=== PATIENT | female | born 1980 | race African-American/Black ===

== ENCOUNTER 2018-03-01 01:59 | Emergency (ER) | payer MEDICAID ==
[~2018-03-01] VITALS: Ht 167.6 cm; Wt 66.0 kg
[2018-03-01] MEDS ORDERED: KETOROLAC 60MG/2ML VIAL IM ONE (06:45)
[2018-03-01 07:26] VITALS: BP 132/74
== END 2018-03-01 07:30 | disposition home or self-care (01) ==
LOC: ER 04:35
DX: K02.9 Dental caries, unspecified (principal)
CPT/HCPCS: 96372; 99283; J1885

== ENCOUNTER 2019-08-04 10:49 | Emergency (ER) | payer MEDICAID ==
[~2019-08-04] VITALS: Ht 167.6 cm; Wt 78.0 kg
[2019-08-04] MEDS ORDERED: ACETAMINOPHEN 325MG TABLET PO ONE (12:15)
[2019-08-04 13:58] VITALS: BP 130/90
== END 2019-08-04 13:58 | disposition home or self-care (01) ==
LOC: ER 10:49
DX: S83.8X1A Sprain of other specified parts of right knee, initial encounter (principal); S93.501A Unspecified sprain of right great toe, initial encounter; I10 Essential (primary) hypertension; W10.8XXA Fall (on) (from) other stairs and steps, initial encounter; Y93.89 Activity, other specified; Y92.018 Other place in single-family (private) house as the place of occurrence of the external cause
CPT/HCPCS: 73560; 73620; 99283

== ENCOUNTER 2019-12-03 11:39 | Emergency (ER) | payer MEDICAID ==
[~2019-12-03] VITALS: Ht 170.2 cm; Wt 90.0 kg
[2019-12-03 11:47] VITALS: BP 162/98
[2019-12-03] MEDS ORDERED: DIPHENHYDRAMINE 25MG CAPSULE PO ONE (12:15)
[2019-12-03] MEDS ORDERED: METOCLOPRAMIDE HCL 10MG TABLET PO ONE (12:15)
[2019-12-03] MEDS ORDERED: KETOROLAC 30MG/ML VIAL IM ONE (12:15)
== END 2019-12-03 13:05 | disposition home or self-care (01) ==
LOC: ER 11:39
DX: R51 Headache (principal); I10 Essential (primary) hypertension
CPT/HCPCS: 81025; 96372; 99283; J1885; J8597; Q0163

== ENCOUNTER 2020-02-07 11:08 | Emergency (ER) | payer MEDICAID ==
[~2020-02-07] VITALS: Ht 170.2 cm; Wt 86.0 kg
[2020-02-07] MEDS ORDERED: IBUPROFEN 600MG TABLET PO ONE (11:45)
[2020-02-07 11:51] VITALS: BP 156/95
== END 2020-02-07 11:55 | disposition home or self-care (01) ==
LOC: ER 11:08
DX: S80.01XA Contusion of right knee, initial encounter (principal); S63.501A Unspecified sprain of right wrist, initial encounter; S90.02XA Contusion of left ankle, initial encounter; S90.01XA Contusion of right ankle, initial encounter; I10 Essential (primary) hypertension; W01.0XXA Fall on same level from slipping, tripping and stumbling without subsequent striking against object, initial encounter; Y93.89 Activity, other specified; Y92.89 Other specified places as the place of occurrence of the external cause; Y99.8 Other external cause status
CPT/HCPCS: 99282

== ENCOUNTER 2020-05-20 08:52 | Emergency (ER) | payer MEDICAID ==
[~2020-05-20] VITALS: Ht 170.2 cm; Wt 114.0 kg
[2020-05-20] MEDS ORDERED: IBUPROFEN 800MG TABLET PO ONE (09:45)
[2020-05-20] MEDS ORDERED: BACITRACIN ZINC OINT UDPKT TOP ONE (09:45)
[2020-05-20 11:18] VITALS: BP 150/78
== END 2020-05-20 11:19 | disposition home or self-care (01) ==
LOC: ER 09:05
DX: S90.31XA Contusion of right foot, initial encounter (principal); S90.01XA Contusion of right ankle, initial encounter; I10 Essential (primary) hypertension; W01.0XXA Fall on same level from slipping, tripping and stumbling without subsequent striking against object, initial encounter; Y93.89 Activity, other specified; Y92.89 Other specified places as the place of occurrence of the external cause
CPT/HCPCS: 29505; 73610; 73630; 99284

== ENCOUNTER 2021-02-17 20:30 | Emergency (ER) | payer MEDICAID ==
[~2021-02-17] VITALS: Ht 167.6 cm; Wt 96.9 kg
[2021-02-17] MEDS ORDERED: ACETAMINOPHEN 325MG TABLET PO ONE (22:30)
[2021-02-17] MEDS ORDERED: IBUPROFEN 600MG TABLET PO ONE (22:30)
[2021-02-17] MEDS ORDERED: NAPR-1176 MT (23:19)
[2021-02-17] MEDS ORDERED: ACET-2708 MT (23:20)
[2021-02-17 23:42] VITALS: BP 169/90
== END 2021-02-17 23:46 | disposition home or self-care (01) ==
LOC: ER 20:30
DX: M25.552 Pain in left hip (principal); F41.9 Anxiety disorder, unspecified; I10 Essential (primary) hypertension
CPT/HCPCS: 73502; 81025; 99283

== ENCOUNTER 2023-01-23 22:02 | Emergency (ER) | payer MEDICAID, OTHER ==
[~2023-01-23] VITALS: Ht 167.6 cm; Wt 92.0 kg
[~2023-01-23 22:02] MED LIST: ACET-2708 MT; NAPR-1176 MT
[2023-01-23 22:04] VITALS: O2SAT 100
[2023-01-23] MEDS ORDERED: ACET-2708 MT (22:11)
[2023-01-23] MEDS ORDERED: AMOX1TAB16 MT (22:11)
[2023-01-23 22:27] VITALS: BP 173/114; PULSE 95; RESP 16; TEMP 97.7
== END 2023-01-23 22:34 | disposition home or self-care (01) ==
LOC: ER 22:02
DX: K04.7 Periapical abscess without sinus (principal); F41.9 Anxiety disorder, unspecified; I10 Essential (primary) hypertension; Z79.899 Other long term (current) drug therapy
CPT/HCPCS: 99283

== ENCOUNTER 2024-08-16 11:27 | Emergency (ER) | payer MEDICAID, OTHER ==
[~2024-08-16] VITALS: Ht 167.6 cm; Wt 86.0 kg
[~2024-08-16 11:27] MED LIST changes: +AMOX1TAB16 MT
[2024-08-16 11:30] VITALS: O2SAT 100
[2024-08-16 11:45] VITALS: BP 162/106; PULSE 88; RESP 16; TEMP 36; O2SAT 99
== END 2024-08-16 15:36 | disposition left against medical advice (07) ==
LOC: ER 11:27
DX: Z04.3 Encounter for examination and observation following other accident (principal); Z53.21 Procedure and treatment not carried out due to patient leaving prior to being seen by health care provider
CPT/HCPCS: 73630

== ENCOUNTER 2024-09-05 15:35 | Emergency (ER) | payer MEDICAID, OTHER ==
[~2024-09-05] VITALS: Ht 167.6 cm; Wt 86.1 kg
[2024-09-05 15:46] VITALS: BP 178/113; RESP 16; TEMP 36.9; O2SAT 100
[2024-09-05 15:47] VITALS: PULSE 107; O2SAT 100
[2024-09-05] MEDS ORDERED: SULF1TAB48 MT (19:13)
[2024-09-05] MEDS ORDERED: CEPH500C2 MT (19:13)
[2024-09-05] MEDS: CEPHALEXIN 250MG CAPSULE PO ONE (19:49)
[2024-09-05] MEDS: IBUPROFEN 600MG TABLET PO ONE (19:50)
[2024-09-05] MEDS: SULFAMETHOXAZOLE/TRIMETHOPRIM 800/160MG TABLET PO ONE (19:50)
== END 2024-09-05 19:53 | disposition home or self-care (01) ==
LOC: ER 15:47
DX: L03.312 Cellulitis of back [any part except buttock and flank] (principal); I10 Essential (primary) hypertension; Z79.899 Other long term (current) drug therapy; Z79.1 Long term (current) use of non-steroidal anti-inflammatories (NSAID)
CPT/HCPCS: 81025; 99284